=== PATIENT | female | born 1940 | race Caucasian/White ===

== ENCOUNTER 2020-04-06 12:52 | Inpatient (IN) | payer OTHER, BC ==
[2020-04-06 13:09] VITALS: BMI 24.2
--- NOTE | 2020-04-06 14:21 | PDOC ---
Documentation entered by Papi Ordoñez SCRIBE, acting as scribe for Pretty Sharma DO. Pretty Sharma DO: This documentation has been prepared by the Tiago linton Xhesika, SCRIBE, under my direction and personally reviewed by me in its entirety. I confirm that the documentation accurately reflects all work, treatment, procedures, and medical decision making performed by me. History of Present Illness - General Chief Complaint: Blood Pressure Problem Stated Complaint: Blood Pressure Problem Time Seen by Provider: 04/06/20 13:31 History Source: Patient Exam Limitations: No Limitations - History of Present Illness Initial Comments: 04/06/20 13:53 79 year old female with a pmh of melanoma, colon Ca, CVA, DVT, kidney stones, GERD, ishchemic colitis, hemorrhoids who presents to the emergency department for dizziness and unsteady gait since 4AM. Pt states she wakes up multiple times throughout the night to use the restroom. Pt states she woke up at 4AM to go the restroom, and endorsed room spinning dizziness and was unsteady on her feet, needing to hold on to the wall. Pt states she then had a similar episode at 10AM when she was going to the restroom. Pt states she checked her BP this morning and it was 214 systolic. Pt went to Urgent Care this morning for her symptoms and was sent to the ED for further evaluation. Pt also notes she usually walks 1mile everyday and feels fine, however, for the past several days she has been feeling SOB when walking. The patient denies chest pain, headache. Denies fever, chills, cough, nausea, vomiting, diarrhea and constipation. Denies dysuria, frequency, urgency and hematuria. Allergies: NKDA PCP:Ricco Romero tPA Exclusion checklist 3-4.5h - Time Elapsed Date last known well: 04/06/20 Time last known well: 04:00 Elaspsed time: Day(s) and 12 Hour(s) and 29 Minutes - Thrombolytic Therapy Candidate Is patient eligible for thrombolytic therapy: No - Ineligibility reason(s) Reasons No tPA given: Outside of window - delayed arrival, See reason(s) noted above (rapid resolution of symptoms) NIH Stroke Scale - Last Known Well Date/Time & Onset Date Last Known Well: 04/06/20 Time Last Known Well: 04:00 - Initial Evaluation Level of consciousness: Alert Ask patient the month and their age: Answers both correctly Ask patient to open & close eyes; make fist and let go: Obeys both correctly Best gaze (horizontal eye movement): Normal Visual field testing: No visual field loss Facial paresis (Show teeth/raise eyebrows/close eyes tight): Normal symmetrical movement Motor Function: Left Arm: Normal Motor Function: Right Arm: Normal (extends arm 90 (or 45) degrees for 10 seconds without drift Motor Function: Left Leg: Normal (extends leg 30 degrees for 5 seconds without drift) Motor Function: Right Leg: Normal (extends leg 30 degrees for 5 seconds without drift) Limb Ataxia: No ataxia Sensory(Use pinprick test arms,legs,trunk,face/side to side): Normal Best language (Describe picture, name items, read sentences): No Aphasia Dysarthria (read several words): Normal articulation Extinction and Inattention: No abnormality - Total Score NIH Stroke Scale Score: 0 Past History - Medical History Allergies/Adverse Reactions: Allergies Allergy/AdvReac Type Severity Reaction Status Date / Time No Known Allergies Allergy Verified 04/06/20 12:59 Home Medications: Ambulatory Orders Aspirin [ASA -] 81 mg PO DAILY 04/06/20 Betamethasone Valerate [Valisone] 1 applic TP ASDIR 04/06/20 Clobetasol Propionate/Emoll [Clobetasol Emollnt 0.05% Foam] 50 gm TP BID 04/06/20 Hydrocortisone Acetate [Anusol Hc Suppository -] 25 mg RC BID 04/06/20 LORazepam [Ativan] 0.5 mg PO DAILY 04/06/20 Olmesartan Medoxomil [Benicar] 20 mg PO DAILY 04/06/20 Simvastatin [Zocor] 20 mg PO HS 04/06/20 Varicella-Zoster Ge Vac,2 of 2 [Shingrix Ge Antigen Component] 50 mcg IM ASDIR 04/06/20 Cancer: Yes (colon, melanoma) CVA: Yes COPD: No DVT: Yes GI Disorders: Yes (gerd, ishchemic colitis, hemorrhoids,) Hypercholesterolemia: Yes Kidney Stones: Yes (hearing loss, gait disturbance.) Other medical history: osteoporosis. vascular disorder, tmj syndrome - Reproductive History Is Patient Now?: No - Psycho-Social/Smoking History Smoking History: Never smoked Review of Systems - Review of Systems Able to Perform ROS?: Yes Comments:: 04/06/20 13:57 GENERAL/CONSTITUTIONAL: No fever or chills. No weakness. HEAD, EYES, EARS, NOSE AND THROAT: No change in vision. No ear pain or disch arge. No sore throat. CARDIOVASCULAR: No chest pain. + shortness of breath when walking RESPIRATORY: No cough, wheezing, or hemoptysis. GASTROINTESTINAL: No nausea, vomiting, diarrhea or constipation. GENITOURINARY: No dysuria, frequency, or change in urination. MUSCULOSKELETAL: No joint or muscle swelling or pain. No neck or back pain. SKIN: No rash NEUROLOGIC: +dizziness. +unsteady gait. No headache, vertigo, loss of consciousness, or change in sensation. ENDOCRINE: No increased thirst. No abnormal weight change. HEMATOLOGIC/LYMPHATIC: No anemia, easy bleeding, or history of blood clots. ALLERGIC/IMMUNOLOGIC: No hives or skin allergy. *Physical Exam - Vital Signs Last Vital Signs Temp Pulse Resp BP Pulse Ox 98.0 F 82 16 174/89 H 100 04/06/20 13:01 04/06/20 13:01 04/06/20 13:01 04/06/20 13:01 04/06/20 13:01 - Physical Exam 04/06/20 13:58 GENERAL: Awake, alert, and fully oriented, in no acute distress HEAD: No signs of trauma EYES: PERRLA, EOMI, sclera anicteric, conjunctiva clear ENT: Auricles normal inspection, hearing grossly normal, nares patent, oropharynx clear without exudates. Moist mucosa NECK: Normal ROM, supple, no lymphadenopathy, JVD, or masses LUNGS: Breath sounds equal, clear to auscultation bilaterally. No wheezes, and no crackles HEART: Regular rate and rhythm, normal S1 and S2, no murmurs, rubs or gallops ABDOMEN: Soft, nontender, normoactive bowel sounds. No guarding, no rebound. No masses EXTREMITIES: Normal range of motion, no edema. No clubbing or cyanosis. No cords, erythema, or tenderness NEUROLOGICAL: Cranial nerves II through XII grossly intact. Normal speech, normal gait SKIN: Warm, Dry, normal turgor, no rashes lesions noted. Heart Score/ECG Review - ECG Intrepretation Comment:: 04/06/20 14:22 sinus at 69, lvh, t wave inversions III, avf, q waves inferior leads which are age indeterminate, abnl ekg ED Treatment Course - LABORATORY CBC & Chemistry Diagram: 04/06/20 14:00 04/06/20 14:00 Medical Decision Making - Medical Decision Making 04/06/20 14:18 a/p: 79yo female with hx of htn compliant with her meds with ataxia this am around 4am which has since resolved -states she felt dizzy and was off balance -states the room was spinning around her -states she took her meds last night -states she went to urgent care who sent her to us for further eval -last normal was 4am and all symptoms have resolved currently -also states combs when going for her 1m walk which she does daily, but combs only x a few weeks -will send labs, concern for posterior circ tia, also concern for ACS -will send trop, ekg, cxr, head ct -no tpa as pt has had rapid resolution of symptoms -nihss = 0 04/06/20 15:08 cbc reviewed and stable cxr clear head ct without acute findings 04/06/20 15:56 trop neg pt updated on results case discussed with Dr. Mai - concern for tia vs hypertensive encephalopathy will order MRI brain will need repeat trops microblog sent to [facility] to discuss hospitalization 04/06/20 16:29 case discussed with [facility] who accepts pt to obs Discharge - Discharge Information Problems reviewed: Yes Clinical Impression/Diagnosis: Dizziness, TIA (transient ischemic attack), COMBS (dyspnea on exertion), Hypertensive encephalopathy Condition: Fair - Admission Yes - Follow up/Referral Referrals: Ricco Samayoa [Primary Care Provider] - - Patient Discharge Instructions - Post Discharge Activity
[2020-04-06 14:51] LABS: BASO % 0.4 % (0-2.0); EOS % 0.2 % (0-4.5); HEMATOCRIT 39.2 % (32.4-45.2); HEMOGLOBIN 13.4 GM/dL (10.7-15.3); LYMPH % 19.3 % (8-40); MCH 31.4 pg (25.7-33.7); MCHC 34.2 g/dl (32.0-36.0); MEAN CELL VOLUME 91.7 fl (80-96); MONO % 4.1 % (3.8-10.2); PLATELET COUNT 225 K/MM3 (134-434); RBC 4.28 M/mm3 (3.60-5.2); RDW 13.5 % (11.6-15.6); WHITE BLOOD COUNT 5.2 K/mm3 (4.0-10.0)
[2020-04-06 14:58] LABS: PROTHROMBIN TIME (PATIENT) 11.8 SEC (9.7-13.0)
[2020-04-06 15:01] LABS: ACTIVATED PTT 29.1 SECONDS (25.2-36.5)
[2020-04-06 15:26] LABS: ALBUMIN 4.2 g/dl (3.4-5.0); ALK PHOS 99 U/L (45-117); ANION GAP 3 MMOL/L (8-16); BILIRUBIN,TOTAL 0.8 mg/dL (0.2-1); BLOOD UREA NITROGEN 16.3 mg/dL (7-18); CALCIUM 9.4 mg/dL (8.5-10.1); CHLORIDE 111 mmol/L (98-107); CO2 28 mmol/L (21-32); CREATININE 0.8 mg/dL (0.55-1.3); GLUCOSE,RANDOM 102 mg/dL (74-106); MAGNESIUM 1.9 mg/dL (1.8-2.4); POTASSIUM 3.9 mmol/L (3.5-5.1); SGOT/AST 19 U/L (15-37); SGPT/ALT 25 U/L (13-61); SODIUM 142 mmol/L (136-145); TOT PROT 7.6 g/dl (6.4-8.2)
[2020-04-06 15:44] LABS: PH,URINE 5.5 (5.0-8.0); URINE APPEARANCE CLEAR; URINE BILIRUBIN NEGATIVE (NEGATIVE); URINE COLOR YELLOW; URINE GLUCOSE (UA) NEGATIVE (NEGATIVE); URINE KETONE NEGATIVE (NEGATIVE); URINE LEUK ESTERASE NEGATIVE (NEGATIVE); URINE NITRITE NEGATIVE (NEGATIVE); URINE PROTEIN NEGATIVE (NEGATIVE); URINE UROBILINOGEN 0.2 mg/dL (0.2-1.0)
--- NOTE | 2020-04-06 16:44 | HP ---
CHIEF COMPLAINT: dizziness PCP:Dr Du HISTORY OF PRESENT ILLNESS: Patient is a 79 y/o female with a history of melanoma, colon cancer, CVA vs TIA, DVT, HTN, kidney stnes, GERD, ischemic colitis, and hemerohids who is admitted for dizziness and ataxia. Patient woke up at 4 am to use the bathroom and felt that the room was spinning and unsteady on her feet. She needed help to walk. She took her BP and it was found o be 240/120. Patient went to urgent care when all her symptoms resolved. Currently no comlaints, past hx unclear if had a stroke or TIA. Patient reports her murmur is old. Patient admitted to r/o stroke. ER course was notable for: (1) (2) (3) Recent Travel: denies PAST MEDICAL HISTORY: melanoma, colon cancer, CVA vs TIA, DVT, HTN, kidney stnes, GERD, ischemic colitis, and hemerohids PAST SURGICAL HISTORY: Social History: Smoking: denies Alcohol: ocasionaly Drugs: denies Allergies No Known Allergies Allergy (Verified 04/06/20 12:59) HOME MEDICATIONS: Home Medications Medication Instructions Recorded Aspirin [ASA -] 81 mg PO DAILY 04/06/20 Betamethasone Valerate [Valisone] 1 applic TP ASDIR 04/06/20 Clobetasol Propionate/Emoll 50 gm TP BID 04/06/20 [Clobetasol Emollnt 0.05% Foam] Hydrocortisone Acetate [Anusol Hc 25 mg RC BID 04/06/20 Suppository -] LORazepam [Ativan] 0.5 mg PO DAILY 04/06/20 Olmesartan Medoxomil [Benicar] 20 mg PO DAILY 04/06/20 Simvastatin [Zocor] 20 mg PO HS 04/06/20 Varicella-Zoster Ge Vac,2 of 2 50 mcg IM ASDIR 04/06/20 [Shingrix Ge Antigen Component] REVIEW OF SYSTEMS CONSTITUTIONAL: Absent: fever, chills, diaphoresis, generalized weakness, malaise, loss of appetite, weight change HEENT: Absent: rhinorrhea, nasal congestion, throat pain, throat swelling, difficulty swallowing, mouth swelling, ear pain, eye pain, visual changes CARDIOVASCULAR: Absent: chest pain, syncope, palpitations, irregular heart rate, lightheaded ness, peripheral edema RESPIRATORY: Absent: cough, shortness of breath, dyspnea with exertion, orthopnea, wheezing, stridor, hemoptysis GASTROINTESTINAL: Absent: abdominal pain, abdominal distension, nausea, vomiting, diarrhea, constipation, melena, hematochezia GENITOURINARY: Absent: dysuria, frequency, urgency, hesitancy, hematuria, flank pain, genital pain MUSCULOSKELETAL: Absent: myalgia, arthralgia, joint swelling, back pain, neck pain SKIN: Absent: rash, itching, pallor HEMATOLOGIC/IMMUNOLOGIC: Absent: easy bleeding, easy bruising, lymphadenopathy, frequent infections ENDOCRINE: Absent: unexplained weight gain, unexplained weight loss, heat intolerance, cold intolerance NEUROLOGIC: ocal weakness or paresthesias, dizziness, unsteady gait, Absent: headache, f seizure, mental status changes, bladder or bowel incontinence PSYCHIATRIC: Absent: anxiety, depression, suicidal or homicidal ideation, hallucinations. PHYSICAL EXAMINATION Vital Signs - 24 hr 04/06/20 04/06/20 13:01 14:22 Temperature 98.0 F 98.1 F Pulse Rate 82 Pulse Rate [ 68 Left Apical] Respiratory 16 16 Rate Blood Pressure 174/89 H Blood Pressure 159/68 [Right Arm] O2 Sat by Pulse 100 97 Oximetry (%) GENERAL: Awake, alert, and fully oriented, in no acute distress. HEAD: Normal with no signs of trauma. EYES: Pupils equal, round and reactive to light, extraocular movements intact EARS, NOSE, THROAT: Moist mucous membranes. NECK: Normal range of motion, supple without lymphadenopathy, JVD, or masses. LUNGS: Breath sounds equal, clear to auscultation bilaterally. No wheezes, and no crackles. No accessory muscle use. HEART: Regular rate and rhythm,mild systolic murmur ABDOMEN: Soft, nontender, not distended, normoactive bowel sounds, no guarding, MUSCULOSKELETAL: Normal range of motion at all joints. No bony deformities or tenderness. No CVA tenderness. LOWER EXTREMITIES: 2+ pulses, warm, well-perfused. No calf tenderness. No peripheral edema. NEUROLOGICAL: Cranial nerves II-XII intact. Normal speech. non ataxic gait PSYCHIATRIC: Cooperative. Good eye contact. Appropriate mood and affect. SKIN: Warm, dry, normal turgor, no rashes or lesions noted, normal capillary refill. CBC, BMP 04/06/20 14:00 04/06/20 14:00 ASSESSMENT/PLAN: Patient is a 79 y/o female with a history of melanoma, colon cancer, CVA vs TIA, DVT, HTN, kidney stones, GERD, ischemic colitis, and hemorrhoids who is admitted to r/o stroke and ACS # HTN urgency r/o stroke - monitr patient on tele - f/u with Sivakumar MRI - head CT: no acute intracranial hemorrhage, mass effect, or midline shift - f/u with Dr. Mai - continue patients statin, f/u lipid panel - hold antihypertensives to allow for permissive HTN, would continue tomorrow #r/o ACS - low suspicion with normal EKG - trops neg x 1, f/u repeat - denies chest pain #HTN - allow for permissive HTN >> MRI negative restarted Benicar #DVT ppx - [place] daily Dispo: monitor on tele Family Medical History Family History: As Documented Visit type - Medication Review Med list reviewed for High Risk Meds patients 65 and older: Yes - Emergency Visit Emergency Visit: Yes ED Registration Date: 04/06/20 Care time: The patient presented to the Emergency Department on the above date and was hospitalized for further evaluation of their emergent condition. - New Patient This patient is new to me today: Yes Date on this admission: 04/07/20 - Critical Care Critical Care patient: No ATTENDING PHYSICIAN STATEMENT I saw and evaluated the patient. I reviewed the resident's note and discussed the case with the resident. I agree with the resident's findings and plan as documented. SUBJECTIVE: OBJECTIVE: ASSESSMENT AND PLAN:
--- OUTSIDE RECORDS SUMMARY | 2020-04-06 18:30 | XMS ---
:1940 Author Organization [facility] Support Name Relationship Address Phone RE, RETIRED Unavailable Unavailable Unavailable RE Unavailable Unavailable Unavailable [place] [address] Re-disclosure Warning The records that you are about to access may contain information from federally- assisted alcohol or drug abuse programs. If such information is present, then the following federally mandated warning applies: This information has been disclosed to you from records protected by federal confidentiality rules (42 CFR part 2). The federal rules prohibit you from making any further disclosure of this information unless further disclosure is expressly permitted by the written consent of the person to whom it pertains or as otherwise permitted by 42 CFR part 2. A general authorization for the release of medical or other information is NOT sufficient for this purpose. The Federal rules restrict any use of the information to criminally investigate or prosecute any alcohol or drug abuse patient.The records that you are about to access may contain highly sensitive health information, the redisclosure of which is protected by Article 27-F of the [facility] Public Health law. If you continue you may haveaccess to information: Regarding HIV / AIDS; Provided by facilities licensed or operated by the [facility] Office of Mental Health; or Provided by the [facility] Office for People With Developmental Disabilities. If such information is present, then the following [facility] mandated warning applies: This information has been disclosed to you from confidential records which are protected by state law. State law prohibits you from making any further disclosure of this information without the specific written consent of the person to whom it pertains, or as otherwise permitted by law. Any unauthorized further disclosure in violation of state law may result in a fine or skilled nursing sentence or both. A general authorization for the release of medical or other information is NOT sufficient authorization for further disclosure. Insurance Providers Payer name Policy type Policy ID Covered Covered constitution party's Policy P zachary / Coverage constitution party ID relationship to Huber Inf ormation type huber BC PPO [id number] SP [id number] MEDICARE [id number] SP [id number] GHI PPO [id number] SP [id number] MEDICARE [id number] SP [id number] T
[2020-04-06] MEDS ORDERED: ATORVASTATIN CA 10 MG TABLET (FP) PO SCH (22:00)
[2020-04-06] MEDS ORDERED: ATORVASTATIN CA 10 MG TABLET (FP) ONE (22:42)
--- NOTE | 2020-04-06 22:53 | PN ---
Teaching Attending Note Name of Resident: Latonya Sanches ATTENDING PHYSICIAN STATEMENT I saw and evaluated the patient. I reviewed the resident's note and discussed the case with the resident. I agree with the resident's findings and plan as documented. SUBJECTIVE: Patient seen and examined at bedside, admitted for dizziness and MAN, ?HTN urgency, endorses BP in 210s systolic at home in ED found to be in 160s. OBJECTIVE: GA talkative, NAD, AAOx3 HEENT NC/AT, no JVD, neck supple, dry MM, no nystagmus, MARY, EOMI Chest CTAB, no crackles or wheezing CVS s1, s2+, GLORIA+ present Abd Soft, NT, ND, BS+, no bruits audible Ext no LE edema, no calf tenderness, normal gait Vital Signs (72 hours) 04/06/20 04/06/20 04/06/20 13:01 14:22 17:28 Temperature 98.0 F 98.1 F Pulse Rate 82 Pulse Rate [ 68 72 Left Apical] Respiratory 16 16 16 Rate Blood Pressure 174/89 H Blood Pressure 159/68 164/78 [Right Arm] O2 Sat by Pulse 100 97 98 Oximetry (%) 04/06/20 04/06/20 21:57 21:58 Temperature 97.6 F Pulse Rate Pulse Rate [ 77 Left Apical] Respiratory 18 Rate Blood Pressure Blood Pressure 155/71 [Right Arm] O2 Sat by Pulse 99 99 Oximetry (%) Laboratory Results - last 24 hr 04/06/20 04/06/20 04/06/20 14:00 14:00 14:00 WBC 5.2 RBC 4.28 Hgb 13.4 Hct 39.2 MCV 91.7 MCH 31.4 MCHC 34.2 RDW 13.5 Plt Count 225 MPV 8.0 Absolute Neuts (auto) 3.9 Neutrophils % 76.0 Lymphocytes % 19.3 Monocytes % 4.1 Eosinophils % 0.2 Basophils % 0.4 Nucleated RBC % 0 PT with INR 11.80 INR 1.00 PTT (Actin FS) 29.1 Sodium 142 Potassium 3.9 Chloride 111 H Carbon Dioxide 28 Anion Gap 3 L BUN 16.3 Creatinine 0.8 Est GFR (CKD-EPI)AfAm 80.70 Est GFR (CKD-EPI)NonAf 69.63 Random Glucose 102 Calcium 9.4 Magnesium 1.9 Total Bilirubin 0.8 AST 19 ALT 25 Alkaline Phosphatase 99 Creatine Kinase 67 Troponin I < 0.02 Total Protein 7.6 Albumin 4.2 TSH 1.02 Urine Color Urine Appearance Urine pH Ur Specific [place] Urine Protein Urine Glucose (UA) Urine Ketones Urine Blood Urine Nitrite Urine Bilirubin Urine Urobilinogen Ur Leukocyte Esterase Blood Type Antibody Screen 04/06/20 04/06/20 04/06/20 14:00 15:04 18:40 WBC RBC Hgb Hct MCV MCH MCHC RDW Plt Count MPV Absolute Neuts (auto) Neutrophils % Lymphocytes % Monocytes % Eosinophils % Basophils % Nucleated RBC % PT with INR INR PTT (Actin FS) Sodium Potassium Chloride Carbon Dioxide Anion Gap BUN Creatinine Est GFR (CKD-EPI)AfAm Est GFR (CKD-EPI)NonAf Random Glucose Calcium Magnesium Total Bilirubin AST ALT Alkaline Phosphatase Creatine Kinase Troponin I 0.02 Total Protein Albumin TSH Urine Color Yellow Urine Appearance Clear Urine pH 5.5 Ur Specific [place] 1.008 L Urine Protein Negative Urine Glucose (UA) Negative Urine Ketones Negative Urine Blood Negative Urine Nitrite Negative Urine Bilirubin Negative Urine Urobilinogen 0.2 Ur Leukocyte Esterase Negative Blood Type B POSITIVE Antibody Screen Negative Home Medications Medication Instructions Recorded Aspirin [ASA -] 81 mg PO DAILY 04/06/20 Betamethasone Valerate [Valisone] 1 applic TP ASDIR 04/06/20 Clobetasol Propionate/Emoll 50 gm TP BID 04/06/20 [Clobetasol Emollnt 0.05% Foam] Hydrocortisone Acetate [Anusol Hc 25 mg RC BID 04/06/20 Suppository -] LORazepam [Ativan] 0.5 mg PO DAILY 04/06/20 Olmesartan Medoxomil [Benicar] 20 mg PO DAILY 04/06/20 Olmesartan Medoxomil [Benicar] 20 mg PO DAILY 04/06/20 Simvastatin [Zocor] 20 mg PO HS 04/06/20 Varicella-Zoster Ge Vac,2 of 2 50 mcg IM ASDIR 04/06/20 [Shingrix Ge Antigen Component] Current Medications Generic Name Dose Route Start Last Admin Trade Name Freq PRN Reason Stop Dose Admin Atorvastatin Calcium 10 mg 04/06/20 22:00 Lipitor - PO HS [facility] Enoxaparin Sodium 40 mg 04/07/20 10:00 Lovenox - SQ DAILY [facility] Losartan Potassium 50 mg 04/07/20 18:50 Cozaar - PO DAILY RENETTA ASSESSMENT AND PLAN: 79 F Uncontrolled HTN ?TIA HLD ?Prior Etoh abuse Allergic atopy Plan: Cont. Benicar for HTN, add Labetalol and titrate up to keep systolic <150mmHg Salt restriction, DASH diet, screen w/ [facility] for Etoh abuse Obtain Echo/Carotids Overnight telemetry monitoring Neurology following MRI neg. for acute infarct DVT ppx: Lovenox SC
[2020-04-07] MEDS ORDERED: ACETAMINOPHEN 325 MG TABLET (FP) PO PRN (02:02)
[2020-04-07] MEDS ORDERED: ACETAMINOPHEN 325 MG TABLET (FP) ONE (02:10)
[2020-04-07] MEDS ORDERED: LOSARTAN POTASSIUM 50 MG TABLET ONE (02:11)
[2020-04-07] MEDS ORDERED: LOSARTAN POTASSIUM 50 MG TABLET PO ONE (02:15)
[2020-04-07 06:43] LABS: HEMATOCRIT 34.2 % (32.4-45.2); HEMOGLOBIN 11.9 GM/dL (10.7-15.3); MCH 31.5 pg (25.7-33.7); MCHC 34.7 g/dl (32.0-36.0); MEAN CELL VOLUME 90.8 fl (80-96); MEAN PLT VOLUME 7.7 fl (7.5-11.1); PLATELET COUNT 215 K/MM3 (134-434); RBC 3.77 M/mm3 (3.60-5.2); RDW 13.1 % (11.6-15.6)
[2020-04-07 07:04] LABS: ALBUMIN 3.5 g/dl (3.4-5.0); BILIRUBIN,TOTAL 0.6 mg/dL (0.2-1); CALCIUM 8.8 mg/dL (8.5-10.1); CREATININE 0.7 mg/dL (0.55-1.3); MAGNESIUM 1.8 mg/dL (1.8-2.4); POTASSIUM 3.7 mmol/L (3.5-5.1); TOT PROT 6.4 g/dl (6.4-8.2)
[2020-04-07] MEDS ORDERED: ENOXAPARIN NA (PORCINE) 40 MG/0.4 ML DISP.SYRIN SQ ONE (07:47)
--- NOTE | 2020-04-07 09:05 | CONSULT ---
Consult - text type - Consultation Consultation Note: Neurology CHIEF COMPLAINT: dizziness PCP:Dr Du HISTORY OF PRESENT ILLNESS: Patient is a 79 y/o female with a history of melanoma, colon cancer, CVA vs TIA, DVT, HTN, kidney stnes, GERD, ischemic colitis, and hemerohids who was admitted for dizziness and ataxia. Patient woke up at 4 am on day of admission to use the bathroom and felt that the room was spinning and unsteady on her feet. She needed help to walk. She took her BP and it was found to be 240/120. Patient went to urgent care when all her symptoms resolved. When admitted she had no comlaints, past hx unclear if had a stroke or TIA. Patient reported her murmur is old. Patient admitted to r/o stroke. Head CT performed and showed no evidence of acute intracranial pathology. MRI of brain reviewed and demonstrated generalized volume loss. There is no mass lesion, acute infarction or hemorrhage. Carotid U/S showed no doppler evidence of high-grade stenosis. Discussed with patient, she was inquiring about possibility of TIA.. She reports good medication compliance which I encouraged her to continue. I discussed with her that her hypertensive episode may have precipitated her symptoms and this may been hypertensive urgency. Recent Travel: denies PAST MEDICAL HISTORY: melanoma, colon cancer, CVA vs TIA, DVT, HTN, kidney stnes, GERD, ischemic colitis, and hemerohids PAST SURGICAL HISTORY: Social History: Smoking: denies Alcohol: ocasionaly Drugs: denies Family Medical History Family History: As Documented REVIEW OF SYSTEMS CONSTITUTIONAL: Absent: fever, chills, diaphoresis, generalized weakness, malaise, loss of a ppetite, weight change HEENT: Absent: rhinorrhea, nasal congestion, throat pain, throat swelling, difficulty swallowing, mouth swelling, ear pain, eye pain, visual changes CARDIOVASCULAR: Absent: chest pain, syncope, palpitations, irregular heart rate, lightheadedness, peripheral edema RESPIRATORY: Absent: cough, shortness of breath, dyspnea with exertion, orthopnea, wheezing, stridor, hemoptysis GASTROINTESTINAL: Absent: abdominal pain, abdominal distension, nausea, vomiting, diarrhea, constipation, melena, hematochezia GENITOURINARY: Absent: dysuria, frequency, urgency, hesitancy, hematuria, flank pain, genital pain MUSCULOSKELETAL: Absent: myalgia, arthralgia, joint swelling, back pain, neck pain SKIN: Absent: rash, itching, pallor HEMATOLOGIC/IMMUNOLOGIC: Absent: easy bleeding, easy bruising, lymphadenopathy, frequent infections ENDOCRINE: Absent: unexplained weight gain, unexplained weight loss, heat intolerance, cold intolerance NEUROLOGIC: ocal weakness or paresthesias, dizziness, unsteady gait, Absent: headache, f seizure, mental status changes, bladder or bowel incontinence PSYCHIATRIC: Absent: anxiety, depression, suicidal or homicidal ideation, hallucinations. Allergies No Known Allergies Allergy (Verified 04/06/20 12:59) HOME MEDICATIONS: Home Medications Medication Instructions Recorded Aspirin [ASA -] 81 mg PO DAILY 04/06/20 Betamethasone Valerate [Valisone] 1 applic TP ASDIR 04/06/20 Clobetasol Propionate/Emoll 50 gm TP BID 04/06/20 [Clobetasol Emollnt 0.05% Foam] Hydrocortisone Acetate [Anusol Hc 25 mg RC BID 04/06/20 Suppository -] LORazepam [Ativan] 0.5 mg PO DAILY 04/06/20 Olmesartan Medoxomil [Benicar] 20 mg PO DAILY 04/06/20 Simvastatin [Zocor] 20 mg PO HS 04/06/20 Varicella-Zoster Ge Vac,2 of 2 50 mcg IM ASDIR 04/06/20 [Shingrix Ge Antigen Component] Active Medications Acetaminophen (Tylenol -) 650 mg PO Q6H PRN PRN Reason: Fever Or Pain Last Admin: 04/07/20 02:15 Dose: 650 mg Documented by: Atorvastatin Calcium (Lipitor -) 10 mg PO HS [facility] Last Admin: 04/06/20 22:52 Dose: 10 mg Documented by: Enoxaparin Sodium (Lovenox -) 40 mg SQ DAILY [facility] Losartan Potassium (Cozaar -) 50 mg PO HS [facility] PHYSICAL EXAMINATION Vital Signs Period Temp Pulse Resp BP Sys/Santillan Pulse Ox Last 24 Hr 97.6 F-99.4 F 68-82 16-18 136-174/68-89 94-100 GENERAL: Awake, alert, and fully oriented, in no acute distress. HEAD: Normal with no signs of trauma. EYES: Pupils equal, round and reactive to light, extraocular movements intact EARS, NOSE, THROAT: Moist mucous membranes. NECK: Normal range of motion, supple without lymphadenopathy, JVD, or masses. LUNGS: Breath sounds equal, clear to auscultation bilaterally. No wheezes, and no crackles. No accessory muscle use. HEART: Regular rate and rhythm,mild systolic murmur ABDOMEN: Soft, nontender, not distended, normoactive bowel sounds, no guarding, MUSCULOSKELETAL: Normal range of motion at all joints. No bony deformities or tenderness. No CVA tenderness. LOWER EXTREMITIES: 2+ pulses, warm, well-perfused. No calf tenderness. No peripheral edema. NEUROLOGICAL: Cranial nerves II-XII intact. Normal speech. Strenght intact bilaterally, sensory intat. PSYCHIATRIC: Cooperative. Good eye contact. Appropriate mood and affect. SKIN: Warm, dry, normal turgor, no rashes or lesions noted, normal capillary refill. CBCD WBC 5.0 K/mm3 (4.0-10.0) 04/07/20 06:00 RBC 3.77 M/mm3 (3.60-5.2) 04/07/20 06:00 Hgb 11.9 GM/dL (10.7-15.3) 04/07/20 06:00 Hct 34.2 % (32.4-45.2) 04/07/20 06:00 MCV 90.8 fl (80-96) 04/07/20 06:00 MCHC 34.7 g/dl (32.0-36.0) 04/07/20 06:00 RDW 13.1 % (11.6-15.6) 04/07/20 06:00 Plt Count 215 K/MM3 (134-434) 04/07/20 06:00 MPV 7.7 fl (7.5-11.1) 04/07/20 06:00 CMP Sodium 142 mmol/L (136-145) 04/07/20 06:00 Potassium 3.7 mmol/L (3.5-5.1) 04/07/20 06:00 Chloride 109 mmol/L (98-107) H 04/07/20 06:00 Carbon Dioxide 29 mmol/L (21-32) 04/07/20 06:00 Anion Gap 4 MMOL/L (8-16) L 04/07/20 06:00 BUN 14.0 mg/dL (7-18) 04/07/20 06:00 Creatinine 0.7 mg/dL (0.55-1.3) 04/07/20 06:00 Random Glucose 97 mg/dL (74-106) 04/07/20 06:00 Calcium 8.8 mg/dL (8.5-10.1) 04/07/20 06:00 Total Bilirubin 0.6 mg/dL (0.2-1) 04/07/20 06:00 AST 15 U/L (15-37) 04/07/20 06:00 ALT 21 U/L (13-61) 04/07/20 06:00 Alkaline Phosphatase 81 U/L (45-117) 04/07/20 06:00 Total Protein 6.4 g/dl (6.4-8.2) 04/07/20 06:00 Albumin 3.5 g/dl (3.4-5.0) 04/07/20 06:00 CARDIAC ENZYMES Creatine Kinase 67 U/L (26-192) 04/06/20 14:00 Troponin I 0.02 ng/ml (0.00-0.05) 04/06/20 18:40 ASSESSMENT/PLAN: Patient is a 79 y/o female with a history of melanoma, colon cancer, CVA vs TIA, DVT, HTN, kidney stnes, GERD, ischemic colitis, and hemerohids who was admitted for dizziness and ataxia. Patient woke up at 4 am on day of admission to use the bathroom and felt that the room was spinning and unsteady on her feet. She needed help to walk. She took her BP and it was found to be 240/120. Patient went to urgent care when all her symptoms resolved. When admitted she had no comlaints, past hx unclear if had a stroke or TIA. Patient reported her murmur is old. Patient admitted to r/o stroke. Head CT performed and showed no evidence of acute intracranial pathology. MRI of brain reviewed and demonstrated generalized volume loss. There is no mass lesion, acute infarction or hemor rhage. Carotid U/S showed no doppler evidence of high-grade stenosis.Discussed with patient, she was inquiring about possibility of TIA.. She reports good medication compliance which I encouraged her to continue. I discussed with her that her hypertensive episode may have precipitated her symptoms and this may been hypertensive urgency. patient reassured that no stroke seen on imaging. Tight blood pressure control recommended, follow-up with resolute professional. Provided information for outpatient follow-up.
[2020-04-07] MEDS ORDERED: ENOXAPARIN NA (PORCINE) 40 MG/0.4 ML DISP.SYRIN SQ SCH (10:00)
--- NOTE | 2020-04-07 10:02 | EKG ---
Test Reason : Blood Pressure : / mmHG Vent. Rate : 069 BPM Atrial Rate : 069 BPM P-R Int : 166 ms QRS Dur : 084 ms QT Int : 404 ms P-R-T Axes : 045 004 003 degrees QTc Int : 432 ms NORMAL SINUS RHYTHM MODERATE VOLTAGE CRITERIA FOR LVH, MAY BE NORMAL VARIANT INFERIOR INFARCT , AGE UNDETERMINED ABNORMAL ECG NO PREVIOUS ECGS AVAILABLE Confirmed by Phil Lee ([id number]) on 04/07/2020 10:02:36 AM Referred By: Confirmed By:Phil Lee
--- NOTE | 2020-04-07 10:03 | DS ---
Physical Exam: SUBJECTIVE: Symptoms resolved. seen by neuro and cleared for d/c. to follow echo results with PMD OBJECTIVE: Vital Signs Period Temp Pulse Resp BP Sys/Santillan Pulse Ox Last 24 Hr 97.6 F-99.4 F 68-82 16-18 136-174/68-89 94-100 PHYSICAL EXAM GENERAL: The patient is awake, alert, and fully oriented, in no acute distress. HEENT: NC/AT, EOMI, CALI, MMM NECK: No JVD LUNGS: CTA bilaterally, no wheezes, no crackles, no accessory muscle use. HEART: RRR, S1, S2 with 3/6 systolic murmur (chronic) LLSB ABDOMEN: Soft, NT/ND, normoactive bowel sounds EXTREMITIES: 2+ pulses, well-perfused, no edema. 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 Normal speech, gait normal PSYCH: Normal mood, normal affect. SKIN: Warm, dry, no rashes or lesions noted. LABS Laboratory Results - last 24 hr 04/06/20 04/06/20 04/06/20 14:00 14:00 14:00 WBC 5.2 RBC 4.28 Hgb 13.4 Hct 39.2 MCV 91.7 MCH 31.4 MCHC 34.2 RDW 13.5 Plt Count 225 MPV 8.0 Absolute Neuts (auto) 3.9 Neutrophils % 76.0 Lymphocytes % 19.3 Monocytes % 4.1 Eosinophils % 0.2 Basophils % 0.4 Nucleated RBC % 0 PT with INR 11.80 INR 1.00 PTT (Actin FS) 29.1 Sodium 142 Potassium 3.9 Chloride 111 H Carbon Dioxide 28 Anion Gap 3 L BUN 16.3 Creatinine 0.8 Est GFR (CKD-EPI)AfAm 80.70 Est GFR (CKD-EPI)NonAf 69.63 Random Glucose 102 Calcium 9.4 Phosphorus Magnesium 1.9 Total Bilirubin 0.8 AST 19 ALT 25 Alkaline Phosphatase 99 Creatine Kinase 67 Troponin I < 0.02 Total Protein 7.6 Albumin 4.2 Triglycerides Cholesterol Total LDL Cholesterol HDL Cholesterol TSH 1.02 Urine Color Urine Appearance Urine pH Ur Specific [place] Urine Protein Urine Glucose (UA) Urine Ketones Urine Blood Urine Nitrite Urine Bilirubin Urine Urobilinogen Ur Leukocyte Esterase Blood Type Antibody Screen 04/06/20 04/06/20 04/06/20 14:00 15:04 18:40 WBC RBC Hgb Hct MCV MCH MCHC RDW Plt Count MPV Absolute Neuts (auto) Neutrophils % Lymphocytes % Monocytes % Eosinophils % Basophils % Nucleated RBC % PT with INR INR PTT (Actin FS) Sodium Potassium Chloride Carbon Dioxide Anion Gap BUN Creatinine Est GFR (CKD-EPI)AfAm Est GFR (CKD-EPI)NonAf Random Glucose Calcium Phosphorus Magnesium Total Bilirubin AST ALT Alkaline Phosphatase Creatine Kinase Troponin I 0.02 Total Protein Albumin Triglycerides Cholesterol Total LDL Cholesterol HDL Cholesterol TSH Urine Color Yellow Urine Appearance Clear Urine pH 5.5 Ur Specific [place] 1.008 L Urine Protein Negative Urine Glucose (UA) Negative Urine Ketones Negative Urine Blood Negative Urine Nitrite Negative Urine Bilirubin Negative Urine Urobilinogen 0.2 Ur Leukocyte Esterase Negative Blood Type B POSITIVE Antibody Screen Negative 04/07/20 04/07/20 06:00 06:00 WBC 5.0 RBC 3.77 Hgb 11.9 Hct 34.2 MCV 90.8 MCH 31.5 MCHC 34.7 RDW 13.1 Plt Count 215 MPV 7.7 Absolute Neuts (auto) Neutrophils % Lymphocytes % Monocytes % Eosinophils % Basophils % Nucleated RBC % PT with INR INR PTT (Actin FS) Sodium 142 Potassium 3.7 Chloride 109 H Carbon Dioxide 29 Anion Gap 4 L BUN 14.0 Creatinine 0.7 Est GFR (CKD-EPI)AfAm 94.84 Est GFR (CKD-EPI)NonAf 81.83 Random Glucose 97 Calcium 8.8 Phosphorus 3.0 Magnesium 1.8 Total Bilirubin 0.6 AST 15 ALT 21 Alkaline Phosphatase 81 Creatine Kinase Troponin I Total Protein 6.4 Albumin 3.5 Triglycerides 89 Cholesterol 182 Total LDL Cholesterol 80 HDL Cholesterol 93 H TSH Urine Color Urine Appearance Urine pH Ur Specific [place] Urine Protein Urine Glucose (UA) Urine Ketones Urine Blood Urine Nitrite Urine Bilirubin Urine Urobilinogen Ur Leukocyte Esterase Blood Type Antibody Screen HOSPITAL COURSE: Date of Admission:04/06/20 Date of Discharge: 04/07/20 Pt placed in observation on 04/06/2020 due to acute onset of dizziness. Patient had Head CT and MRI performed which resulted in no acute pathology. During this time patient was found to have BP originally recorded at home being 240/120. Upon arrival here she was noted to have 178/90. Her BP self corrected and her symptoms began to resolve. Patient was seen by neurology and she was cleared for outpatient follow-up. Pt is stable to be discharged home and will need to follow-up regarding her outpatient Benicar dosing. Minutes to complete discharge: 33 Discharge Summary Problems reviewed: Yes Reason For Visit: DYPSNEA ON EXERTION TRANSIENT ICHEMIC ATTACK HYPER Current Active Problems MAN (dyspnea on exertion) (Acute) Dizziness (Acute) Hypertensive encephalopathy (Acute) TIA (transient ischemic attack) (Acute) Condition: Improved - Instructions Diet, Activity, Other Instructions: You were seen here for your elevated blood pressure causing your dizziness. Your Head CAT scan and MRI were both normal. You received an echocardiogram which showed your regular heart murmur. It will be faxed to Dr. Gill so he can determine if there have been any changes. MEDICATIONS: Please continue your medications as is. You may need adjustment of your Benicar from your outpatient physicians. FOLLOW-UP: Please follow-up with all your physicians on an outpatient basis. Referrals: Ricco Samayoa [Primary Care Provider] - Kye Mai MD [Staff Physician] - Disposition: HOME - Home Medications Comprehensive Discharge Medication List: Ambulatory Orders Aspirin [ASA -] 81 mg PO DAILY 04/06/20 Clobetasol Propionate/Emoll [Clobetasol Emollnt 0.05% Foam] 50 gm TP BID 04/06/20 LORazepam [Ativan] 0.5 mg PO DAILY 04/06/20 Olmesartan Medoxomil [Benicar] 20 mg PO DAILY 04/06/20 Simvastatin [Zocor] 20 mg PO HS 04/06/20 This patient is new to me today: Yes Date on this admission: 04/07/20 Emergency Visit: Yes ED Registration Date: 04/06/20 Care time: The patient presented to the Emergency Department on the above date and was hospitalized for further evaluation of their emergent condition. Critical Care patient: No - Discharge Referral Referred to [facility] No
[2020-04-07 10:11] VITALS: BP 131/74; PULSE 82; TEMP 97.5
[2020-04-07] MEDS ORDERED: LOSARTAN POTASSIUM 50 MG TABLET PO SCH ×2 (18:50→22:00)
--- NOTE | 2020-04-08 07:01 | ECHO ---
Name: BETY MARKHAM Exam:Adult Echocardiogram Study Date: 04/07/2020 08:27 AM Age: 79 yrs Height: 59 in Weight: 120 lb BSA: 1.5 m2 MMode/2D Measurements & Calculations IVSd: 0.84 cm Ao root diam: 2.6 cm LVIDd: 2.8 cm LA dimension: 2.9 cm LVIDs: 2.0 cm LVPWd: 1.2 cm LVPWs: 1.4 cm EDV(Teich): 28.4 ml ESV(Teich): 13.1 ml LAV (MOD-bp): 49.0 ml TAPSE: 2.5 cm RV S Tramaine: 16.0 cm/sec Doppler Measurements & Calculations MV E max tramaine: 82.4 cm/sec Ao V2 max: 171.0 cm/sec MV A max tramaine: 67.1 cm/sec Ao max P.7 mmHg MV E/A: 1.2 MV dec time: 0.25 sec LV V1 max P.4 mmHg MR max tramaine: 303.6 cm/sec LV V1 max: 153.0 cm/sec MR max P.9 mmHg TR max tramaine: 247.0 cm/sec PA V2 max: 107.9 cm/sec TR max P.4 mmHg PA max P.7 mmHg Med Peak E' Tramaine: 6.1 cm/sec Med E/e': 13.6 Lat Peak E' Tramaine: 7.6 cm/sec Lat E/e': 10.8 Procedure A complete two-dimensional transthoracic echocardiogram was performed (2D, M-mode, Doppler and color flow Doppler). Left Ventricle The left ventricular size, thickness and function are normal. Ejection Fraction = 60%. Diastolic dysf unction, Grade II (pseudonormalization pattern). Right Ventricle The right ventricle is normal in size and function. Atria Normal left and right atrial size and function. Mitral Valve The mitral valve is normal in structure and function. There is no mitral valve stenosis. There is no mitral regurgitation noted. Tricuspid Valve The tricuspid valve is normal in structure and function. There is trace tricuspid regurgitation. Righ t ventricular systolic pressure is normal. Aortic Valve The aortic valve is trileaflet. There is mild aortic sclerosis.;. No hemodynamically significant valv ular aortic stenosis. Pulmonic Valve The pulmonic valve is normal in structure and function. Great Vessels The aortic root is normal size. Normal aortic arch, descending and ascending aorta. Pericardium/Pleura There is no pericardial effusion. Interpretation Summary The left ventricular size, thickness and function are normal Diastolic dysfunction, Grade II (pseudonormalization pattern). The right ventricle is normal in size and function. Phil Lee 04/07/2020 11:50 AM
== END 2020-04-07 11:00 | disposition home or self-care (01) | DRG 305 ==
LOC: JER 12:52 → JERBED 16:29
PROVIDERS: ATTEND Internal Medicine
DX: I16.0 Hypertensive urgency (principal); R42 Dizziness and giddiness; K21.9 Gastro-esophageal reflux disease without esophagitis; N20.0 Calculus of kidney; K64.9 Unspecified hemorrhoids; R06.09 Other forms of dyspnea; Z85.038 Personal history of other malignant neoplasm of large intestine; Z86.73 Personal history of transient ischemic attack (TIA), and cerebral infarction without residual deficits; Z86.718 Personal history of other venous thrombosis and embolism
CPT/HCPCS: 36415; 70450-TC; 70551-TC; 71045-TC-FY; 80053; 80061; 81003; 82550; 83721; 83735; 84100; 84443; 84484; 85025; 85027; 85610; 85730; 86850; 86900; 86901; 93005; 93010; 93306-TC; 93880-TC; 99285-25; U0003